=== PATIENT | male | born 1975 | race Caucasian/White ===

== ENCOUNTER → 2024-08-01 | Outpatient (CLI) | payer OTHER | END | disposition home or self-care (01) | LOC: LAB 14:43 → LAB SHORT 14:43 | DX: M25.561 Pain in right knee (principal) | CPT/HCPCS: 84550 ==

== ENCOUNTER → 2024-08-08 | Outpatient (CLI) | payer OTHER | LOC: LAB SHORT 10:38 → LAB 10:38 → PLD 10:38 | DX: D22.5 Melanocytic nevi of trunk (principal); L81.9 Disorder of pigmentation, unspecified | CPT/HCPCS: 88305 ==